=== PATIENT | female | born 1985 | race Caucasian/White ===

== ENCOUNTER 2023-06-03 10:58 | Emergency (ER) | payer BC, SELFPAY ==
[2023-06-03 11:00] VITALS: BP 171/93; PULSE 74; RESP 16; TEMP 36.2; O2SAT 100; BMI 47.7
--- NOTE | 2023-06-03 11:14 | ED.RN ---
Assumed care of patient
--- NOTE | 2023-06-03 11:26 | EKG12_ITS ---
Test Reason : BACK PAIN Blood Pressure : / mmHG Vent. Rate : 064 BPM Atrial Rate : 064 BPM P-R Int : 194 ms QRS Dur : 102 ms QT Int : 396 ms P-R-T Axes : 028 075 015 degrees QTc Int : 408 ms Normal sinus rhythm Normal ECG Confirmed by WILLIE MAGDALENO, VERONA ([id number]), film editor ALLI KEY ([id number]) on 06/05/2023 10:44:05 AM Referred By: Confirmed By:VERONA TAPIA MD
--- NOTE | 2023-06-03 11:27 | EX.ED.DYSGE1 ---
HPI History of Present Illness Chief Complaint: Shortness of Breath Narrative Narrative: Patient is a 37-year-old female with history of allergies who presents to the emergency department with complaints of midsternal to left-sided chest pain that goes to her back. Patient states that this developed whenever she had a hard sneeze, she also was lifting at work on Saturday and she developed pain yesterday morning. Patient denies any shortness of breath. Patient states that pain is worse with movement, rotation, moving of her arms. Patient is concerned that she has pneumonia or is having a heart attack. She denies any cardiac history, she denies any cough fever or chills. PFSH PFS Home Medications naproxen 500 mg tablet (Naprosyn) 500 mg PO BID PRN pain #20 tabs 06/03/23 [Rx Last Taken Unknown] Allergy/AdvReac Type Severity Reaction Status Date / Time No Known Allergies Allergy Verified 06/03/23 11:00 ROS ROS ED ROS Narrative Constitutional: Negative for fever, chills, weight loss, weakness Eyes: Negative for vision loss, vision change, double vision ENT: Negative for any sore throat, ear pain, congestion Cardiovascular: Negative for any tightness, palpitations. Positive for chest pain Respiratory: Negative for any cough, sputum production, hemoptysis, dyspnea, dyspnea on exertion, orthopnea Gastrointestinal: Negative for any abdominal pain, nausea, vomiting, diarrhea, constipation, blood in stool, blood in vomit : Negative for any urinary frequency, dysuria, retention, blood in urine Muscle skeletal: Negative for any muscle joint pain, stiffness, myalgias, arthralgias, neck pain, back pain Neurological: Negative for any headache, syncope, numbness or tingling, dizziness Skin: Negative for any rashes, lumps, itching, abrasions, lacerations Psychiatric: Negative for any depression, anxiety, stress, suicidal ideation, homicidal ideation Hematologic: Negative for any easy bruising, excessive bruising, easy bleeding Allergies: Negative for any eczema, hives, rash EXAM Physical Exam Narrative Exam Narrative: Vital signs reviewed. HEET: Head normocephalic atraumatic, TMs clear bilaterally. Posterior pharynx is clear, moist mucous membranes. Nares clear bilaterally. Neck: Supple with no lymphadenopathy or tenderness. No signs of meningismus, negative jolt sign. Cardiac: Regular rate and rhythm no murmurs gallops or rubs, equal peripheral pulses bilaterally. Respiratory: Lungs clear to auscultation bilaterally. Patient's chest pain is reproducible. Patient has pain on palpation of left upper chest, left upper and back on palpation. Patient has worsening pain with movement of her arms. Negative for any crepitus. No rubbing, murmurs. Abdomen: Soft, nontender, nondistended. No abdominal bruit or pulsatile masses. No hepatosplenomegaly Extremities: No peripheral edema, no signs of gross trauma or deformity. Active full range of motion of all extremities. Neuro: Cranial nerves II through XII intact, no focal neurological deficits. Skin: Clean dry and intact with no rash, purpura, petechiae, vesicles or pustules. Backs/flank: No CVA tenderness, no midline spinal tenderness, no deformity. Psych: Normal mood and affect. No SI, HI or acute psychosis. Const Vital Signs: 06/03/23 11:00 06/03/23 11:27 Temperature 97.1 F L Temperature Source Temporal Pulse Rate 74 Respiratory Rate 16 Respiratory Effort Normal Non-Labored Respiratory Depth Normal Respiratory Pattern Normal Blood Pressure 171/93 H Blood Pressure Mean 119 Pulse Ox 100 Oxygen Delivery Method Room Air Positive well nourished and well developed General Appearance ED: well developed MDM MDM Lab Data Labs: Laboratory Results - last 24 hr 06/03/23 11:55 Urine Color Yellow Urine Clarity Clear Urine pH 7.0 Ur Specific [place] 1.010 Urine Protein Negative Urine Glucose (UA) Normal Urine Ketones Negative Urine Occult Blood Negative Urine Nitrite Negative Urine Bilirubin Negative Urine Urobilinogen Normal Ur Leukocyte Esterase Negative Urine RBC 0 SEEN Urine WBC 0 SEEN Ur Squamous Epith Cells 0-5 SEEN Urine Bacteria 0 SEEN Urine Mucus 0 SEEN Urine Test Negative EKG Normal sinus rhythm: Attestation: I personally reviewed and interpreted this EKG as follows: Interpretation: Sinus Rhythm Comments: EKG shows a normal sinus rhythm, rate of 64 bpm, WV interval 194 ms, QRS duration 102 ms, no acute ST elevation, no acute infarct noted Treatment and Re-Evaluation :: Patient appears generally well, patient appears nontoxic, vital signs are stable. Patient presents to the emergency department with chest pain that was worse with movement, physical examination consistent with muscle skeletal pain. Patient received EKG, chest x-ray to rule out any ACS, IL, pneumonia or pneumothorax. Evaluation, the patient responded well to IM Toradol. Patient's urinalysis was negative for any infection. Patient is not . Patient's 2 view chest x-ray was negative for any acute process. At this time, patient be diagnosed with muscle skeletal chest pain. She will continue take ibuprofen or Tylenol. Patient is happy with the plan of care, all questions answered, patient stable for discharge Discharge Plan Triage Chief Complaint: Shortness of Breath ED Midlevel Provider: Robb Vazquez ED Provider: Robb Wagoner Dx/Rx/DC Orders Clinical Impression: Chest wall pain, Chest wall muscle strain Instructions: ED Chest Wall Strain Prescriptions: New naproxen [Naprosyn] 500 mg tablet 500 mg PO BID PRN (Reason: pain) Qty: 20 0RF Primary Care Provider: TAWANDA FRIEND Referrals: [facility] Doctor,Out of [Non-Staff] - Activity Restrictions/Additional Instructions: Please continue take ibuprofen, Tylenol. Disposition Disposition: Home, Self Care
[2023-06-03 11:59] LABS: Bacteria 0 SEEN /hpf (None Seen); Mucous, Urine 0 SEEN /hpf (<or=2+); Red Blood Cells-Urine 0 SEEN /hpf (0-5); White Blood Cells 0 SEEN /hpf (0-5)
[2023-06-03 12:00] LABS: Color, Urine Yellow (Yellow); Glucose, Dipstick Normal (Normal); Ketone-Dipstick Negative (Negative); Leukocyte Esterase-Dipstick Negative /ul (Negative); Nitrite-Dipstick Negative (Negative); Occult Blood-Urine Negative /ul (Negative); Protein-Dipstick Negative (Negative); Urine Bilirubin Dipstick Negative (Negative); Urine Clarity Clear (Clear); Urine Urobilinogen Normal (Normal)
[2023-06-03 12:03] LABS: Internal QC Validated? YES +Cl - CLEAR BKGD; Pregnancy, Urine Negative Negative
[2023-06-03 12:21] LABS: Squamous Epithelial Cells - UA 0-5 SEEN /hpf (5-10)
[2023-06-03] MEDS: Ketorolac 30 MG/ML Syringe IM (12:35)
--- NOTE | 2023-06-03 12:55 | RAD_ITS ---
INDICATION: chest pain EXAMINATION/TECHNIQUE: X-RAY - XR Chest 2 Views COMPARISON: No relevant prior comparison study available FINDINGS: LINES/DEVICES: None. LUNGS: The lungs are well expanded. No consolidation, edema or effusion. No pneumothorax. MEDIASTINUM AND CARDIOVASCULAR STRUCTURES: Cardiac silhouette not enlarged. Central airways and mediastinal contour are unremarkable. BONES AND SOFT TISSUES: Unremarkable. RAD/Chest PA and Lateral IMPRESSION: No acute pulmonary finding. Electronically Signed: Boy Stephens MD at 13:36 EDT ,
[2023-06-03 13:20] VITALS: RESP 16
== END 2023-06-03 13:21 | disposition home or self-care (01) ==
PROVIDERS: Nurse Practitioner; Emergency Provider Emergency Medicine; Visit Provider Emergency Medicine
DX: S29.011A Strain of muscle and tendon of front wall of thorax, initial encounter (principal); R07.89 Other chest pain; X58.XXXA Exposure to other specified factors, initial encounter; Y93.89 Activity, other specified; Y92.89 Other specified places as the place of occurrence of the external cause
CPT/HCPCS: 71046; 81001; 81025; 93005; 99282